=== PATIENT | male | born 1970 | race Caucasian/White ===

== ENCOUNTER 2024-12-27 07:31 | Emergency (ER) | payer OTHER, SELFPAY ==
[2024-12-27 07:32] VITALS: BP 170/88; PULSE 79; RESP 18; TEMP 36.4; O2SAT 100
[2024-12-27] MEDS: KETOROLAC 30 MG/ML VIAL (*BKC) 15 MG IM (10:21)
--- NOTE | 2024-12-27 10:34 | ED_ITS ---
HPI - Dental/Oral General Chief complaint: Dental/Oral Stated complaint: facial swelling Time Seen by Provider: 12/27/24 10:02 History of Present Illness HPI Narrative: No patient broke his to eating a few days ago, since then has noticed some swelling to his cheek, was initially worse when he woke up but it has gotten better. No difficulty opening his mouth, no systemic symptoms Related Data Allergies Allergy/AdvReac Type Severity Reaction Status Date / Time No Known Allergies Allergy Unverified 12/15/14 18:18 Review of Systems Review of Systems: All systems reviewed & are unremarkable except as noted in HPI and below Exam Narrative: EXAMINATION OF ORGAN SYSTEMS/BODY AREAS: Constitutional: Vital signs per nursing GENERAL:[No acute distress, non-toxic appearing.] HEAD: Normal with no signs of head trauma. EYES: EOMI, conjunctiva normal ENT: No trismus, incredibly poor dentition, including left upper premolar cracked with dental juanjose and some surrounding swelling without fluctuance, swelling of his left upper cheek LUNGS: Nonlabored breathing. HEART: [Regular rate and rhythm] ABD: [Soft], [nontender to palpation] EXT: Normal range of motion SKIN: [No rashes or lesions.] NEURO: [Alert and oriented x 3. No gross focal sensory or strength deficits.] PSYCH: Normal affect Course Vital Signs Vital signs: Vital Signs Temperature 97.5 F L 12/27/24 07:32 Pulse Rate 79 12/27/24 07:32 Respiratory Rate 18 12/27/24 07:32 Blood Pressure 170/88 H 12/27/24 07:32 Pulse Oximetry 100 12/27/24 07:32 Oxygen Delivery Room Air 12/27/24 07:32 Temperature 97.5 F L 12/27/24 07:32 Pulse Rate 79 12/27/24 07:32 Respiratory Rate 18 12/27/24 07:32 Blood Pressure 170/88 H 12/27/24 07:32 Pulse Oximetry 100 12/27/24 07:32 Oxygen Delivery Room Air 12/27/24 07:32 MDM - Dental/Oral MDM Narrative Medical decision making narrative: ED COURSE AND MEDICAL DECISION MAKING: Patient with worsening dental pain and dental decay. Swelling around the left u pper premolar which is cracked with acute dental juanjose, but no large fluctuance that I can drain. No trismus. Voice is normal.. No systemic signs or symptoms. Analgesics are administered. Follow-up instructions given for dental/oral surgery clinics. Patient was given return precautions and discharged home in stable condition. Does have high blood pressure here but suspect this may be from the pain, no signs or symptoms of end organ dysfunction; no chest pain or shortness of breath, neurological deficits, severe headaches, visual disturbance, oliguria, or symptoms of dissection/AAA). Should follow-up with PCP for further evaluation and treatment as needed Discharge Plan Discharge Clinical Impression: Dental abscess Patient Disposition: Home Condition: Stable Instructions: Antibiotic Form, Dental Abscess (ED) Additional Instructions: Take the antibiotics as prescribed, if your swelling gets much worse or if you are unable to open your jaw, if you feel like the swelling is going down your neck or throat, or anything else concerning, please return to the ER Patient Language: Greenlandic Prescriptions: New amoxicillin-pot clavulanate 875-125 mg tablet 1 tablet PO Q12H Qty: 14 0RF Follow-up/Referrals: Skip,Shiva Poole MD [Primary Care Provider]
== END 2024-12-27 10:25 | disposition home or self-care (01) ==
LOC: ANHED 10:11
PROVIDERS: Emergency Provider Emergency Medicine; PCP Family Medicine
DX: K04.7 Periapical abscess without sinus (principal)
CPT/HCPCS: 96372; 99283; A9270; J1885